=== PATIENT | male | born 1965 | race Caucasian/White ===

== ENCOUNTER 2016-12-06 14:44 | Emergency (ER) | payer OTHER ==
[~2016-12-06] VITALS: Ht 180.3 cm; Wt 104.3 kg
[~2016-12-06 14:44] MED LIST: HYDR-4100 PO
--- NOTE | 2016-12-06 15:00 | NUR ---
Patient to ER bed 2 to gown for evaluation. Side rails up. Report given to SHAMIR Borjas.
[2016-12-06 15:07] VITALS: BP 114/77; PULSE 75; RESP 18; TEMP 97.1; O2SAT 96
--- NOTE | 2016-12-06 15:10 | NUR ---
Pt brought in by in stable condition. Pt c/o right armpit pain 8 from growing abscess. Pt stated that he is unable to put his arm down completely due to severe pain. Pt present in an anxious state. -sob -chest pain. No acute distress noted at this time, will continue to monitor
--- NOTE | 2016-12-06 15:20 | NUR ---
ROXIE Garsia at bedside examining patient.
[2016-12-06] MEDS ORDERED: LORazepam 1 MG TABLET PO ONE (15:45)
[2016-12-06] MEDS ORDERED: LIDOCAINE/EPI 1% 1:100000 20 ML VIAL IJ ONE (15:45)
[2016-12-06] MEDS ORDERED: IBUPROFEN 800 MG TABLET PO ONE (15:45)
[2016-12-06] MEDS ORDERED: fentaNYL CITRATE/PF 100 MCG/2 ML AMP ONE (16:30)
[2016-12-06] MEDS ORDERED: fentaNYL CITRATE/PF 100 MCG/2 ML AMP IM ONE (16:45)
[2016-12-06 17:01] VITALS: BP 114/77; PULSE 75; RESP 18; TEMP 97.1; O2SAT 96
--- NOTE | 2016-12-06 17:01 | NUR ---
Patient given written and verbal discharge instructions and verbalizes understanding. ER BUSINESS DIVISION CHAIR Sun discussed with patient the results and treatment provided. Patient in stable condition. ID arm band removed. Rx of Motrin 800, Bactrim, tramadol, and Keflex given. Patient educated on pain management and to follow up with PMD. Pain Scale 2/10. Opportunity for questions provided and answered.
== END 2016-12-06 17:07 | disposition home or self-care (01) ==
LOC: SED 14:44
DX: L02.411 Cutaneous abscess of right axilla (principal); F17.200 Nicotine dependence, unspecified, uncomplicated; I10 Essential (primary) hypertension; Z88.5 Allergy status to narcotic agent; Z88.8 Allergy status to other drugs, medicaments and biological substances; Z71.6 Tobacco abuse counseling
CPT/HCPCS: 10060; 96372; 99283; J3010

== ENCOUNTER 2016-12-09 14:41 | Emergency (ER) | payer OTHER ==
[~2016-12-09] VITALS: Ht 180.3 cm; Wt 104.8 kg
[2016-12-09 15:03] VITALS: BP 140/90; RESP 18; TEMP 97.7; O2SAT 96
--- NOTE | 2016-12-09 15:12 | NUR ---
Pt placed to ER waiting room in stable condition.
--- NOTE | 2016-12-09 15:58 | NUR ---
Pt brought to [facility] chair.
--- NOTE | 2016-12-09 16:00 | NUR ---
MD Gallego assessing patient in [facility].
[2016-12-09] MEDS ORDERED: HYDROcodone/ACETAMIN 5-325 MG TAB (NORCO/ VICODIN) PO ONE (16:15)
[2016-12-09 16:29] VITALS: BP 143/77; PULSE 79; RESP 16; O2SAT 99
--- NOTE | 2016-12-09 16:30 | NUR ---
Patient given written and verbal discharge instructions and verbalizes understanding. ER MD discussed with patient the results and treatment provided. Given copies of tests performed in ER. Patient in stable condition. ID arm band removed. Patient educated on pain management and to follow up with PMD. Pain Scale . Opportunity for questions provided and answered.
== END 2016-12-09 16:29 | disposition home or self-care (01) ==
LOC: SED 14:41
DX: M79.621 Pain in right upper arm (principal); I10 Essential (primary) hypertension; Z88.5 Allergy status to narcotic agent; Z88.8 Allergy status to other drugs, medicaments and biological substances
CPT/HCPCS: 99283

== ENCOUNTER 2017-08-26 15:19 | Emergency (ER) | payer MEDICARE, MEDICAID ==
[~2017-08-26] VITALS: Ht 180.3 cm; Wt 111.1 kg
[2017-08-26 15:24] VITALS: BP_SYST 156
[2017-08-26] MEDS ORDERED: MORPHINE 4 MG/ML INJ. SYRINGE IVP ONE (16:30)
[2017-08-26] MEDS ORDERED: ONDANSETRON HCL 4 MG/2 ML VIAL IVP ONE (16:30)
[2017-08-26 16:47] LABS: BASOPHILS # (AUTO) 0.1 K/uL (0.0-0.2); BASOPHILS % (AUTO) 0.4 % (0.0-2.0); EOSINOPHILS # (AUTO) 0.1 K/uL (0.0-0.4); EOSINOPHILS % (AUTO) 0.5 % (0.0-4.0); HEMATOCRIT 42.6 % (36-54); HEMOGLOBIN 13.7 g/dL (14.0-18.0); LYMPHOCYTES # (AUTO) 2.6 K/uL (1.0-5.5); LYMPHOCYTES % (AUTO) 19.4 % (20.5-51.5); MEAN CORPUSCULAR HEMOGLOBIN 28 pg (27-31); MEAN CORPUSCULAR HGB CONC 32 % (32-36); MEAN CORPUSCULAR VOLUME 87 fL (79.0-98.0); MONOCYTES # (AUTO) 0.7 K/uL (0.0-1.0); MONOCYTES % (AUTO) 5.2 % (1.7-9.3); NEUTROPHILS # (AUTO) 9.8 K/uL (1.8-7.7); NEUTROPHILS % (AUTO) 74.5 % (40.0-70.0); PLATELET COUNT (AUTO) 356 K/uL (130-430); RED BLOOD CELL COUNT(AUTO) 4.88 MIL/uL (4.2-6.2); RED CELL DISTRIBUTION WIDTH 13.5 % (9.0-15.0); WHITE BLOOD COUNT (AUTO) 13.3 K/uL (4.8-10.8)
[2017-08-26 16:56] LABS: CALCIUM 9.6 mg/dL (8.4-11.0); CREATININE 0.74 mg/dL (0.55-1.30); INR 1.1 (0.80-1.20); POTASSIUM 3.9 mmol/L (3.5-5.1); PROTHROMBIN TIME 10.8 SECS (9.5-12.5)
[2017-08-26 17:01] LABS: ALBUMIN 3.9 g/dL (3.4-4.8); TOTAL BILIRUBIN 0.3 mg/dL (0.0-1.0)
[2017-08-26] MEDS ORDERED: HYDROmorphone 1 MG INJ. 1 MG/ML AMPUL IVP ONE ×2 (18:15→19:45)
[2017-08-26 19:24] LABS: BILIRUBIN,URINE NEGATIVE (NEGATIVE); BLOOD, URINE NEGATIVE (NEGATIVE); CLARITY/URINE CLEAR (CLEAR); COLOR,URINE YELLOW (YELLOW); GLUCOSE,URINE NEGATIVE (NEGATIVE); KETONES,URINE NEGATIVE (NEGATIVE); LEUKOCYTE ESTERASE ,URINE NEGATIVE (NEGATIVE); NITRITE, URINE NEGATIVE (NEGATIVE); PH,URINE 6.5 (5.0-8.0); PROTEIN URINE NEGATIVE (NEGATIVE); UROBILINOGEN,URINE 0.2 (0.2-1.0)
[2017-08-26 20:18] VITALS: BP_SYST 143
== END 2017-08-26 20:18 | disposition home or self-care (01) ==
LOC: SED 15:19
DX: G89.29 Other chronic pain (principal); M54.5 Low back pain; F41.1 Generalized anxiety disorder; I10 Essential (primary) hypertension; Z87.891 Personal history of nicotine dependence
CPT/HCPCS: 36415; 71010; 72100; 80053; 81003; 84484; 85025; 85610; 93005; 96374; 96375; 96376; 99285; J1170; J2270; J2405

== ENCOUNTER 2017-10-22 23:36 | Emergency (ER) | payer MEDICARE, MEDICAID ==
[~2017-10-22] VITALS: Ht 180.3 cm; Wt 111.1 kg
[2017-10-23 00:19] VITALS: BP_SYST 132
[2017-10-23] MEDS ORDERED: DIPHENHYDRAMINE INJ 50 MG/ML VIAL IM ONE (03:00)
[2017-10-23] MEDS ORDERED: HYDROmorphone 2 MG/ML VIAL IM ONE (03:00)
[2017-10-23 03:15] VITALS: BP_SYST 128
== END 2017-10-23 03:15 | disposition home or self-care (01) ==
LOC: SED 23:36
DX: G89.29 Other chronic pain (principal); M54.5 Low back pain; I10 Essential (primary) hypertension; Z88.8 Allergy status to other drugs, medicaments and biological substances
CPT/HCPCS: 96372; 99284; J1170; J1200

== ENCOUNTER 2017-10-31 08:46 | Emergency (ER) | payer MEDICARE, MEDICAID ==
[~2017-10-31] VITALS: Ht 180.3 cm; Wt 108.9 kg
[2017-10-31 08:46] VITALS: BP_SYST 158
--- NOTE | 2017-10-31 08:46 | NUR ---
Pt placed to ER bed 05, to gown, report given to SHAMIR Joaquin.
--- NOTE | 2017-10-31 08:58 | NUR ---
ER Dr. Murry at bedside examining patient.
--- NOTE | 2017-10-31 08:59 | NUR ---
Pt AAOX4, able to verbalize needs, ambulates with cane. Pt c/o 07/03 left hip pain post bilat hip surgery "a while ago." Pt states, "I don't want to be here, but I keep getting redirected by my pain management doctor and orthopedic doctor. I'm not states not supposed to be here." No other complaints or injuries per pt or noted. Addendum: 10/31/17 at 0945 by MARY KAY Pt also states, "I'm here because I called the doctor 3 times and the answering service states to go to ER if no phone call is returned."
--- NOTE | 2017-10-31 09:14 | NUR ---
Dr. Murry at bedside with patient.
[2017-10-31] MEDS ORDERED: HYDROmorphone 2 MG/ML VIAL IM ONE (09:30)
[2017-10-31] MEDS ORDERED: DIPHENHYDRAMINE INJ 50 MG/ML VIAL IM ONE (09:30)
--- NOTE | 2017-10-31 10:07 | NUR ---
Pt states pain relief post administration of meds per Dr. Murry's orders. No adverse reactions noted.
--- NOTE | 2017-10-31 10:15 | NUR ---
Patient given written and verbal discharge instructions and verbalizes understanding. ER MD discussed with patient the results and treatment provided. Patient in stable condition. ID arm band removed. IV catheter removed intact and dressing applied, no active bleeding. No Rx given. Patient educated on pain management and to follow up with PMD. Pain Scale 4/10, states "pain is bearable." Opportunity for questions provided and answered. Addendum: 10/31/17 at 1453 by MARY KAY Correction: No IV was given or in place during visit.
[2017-10-31 10:18] VITALS: BP_SYST 135
== END 2017-10-31 10:14 | disposition home or self-care (01) ==
LOC: SED 08:46
DX: G89.29 Other chronic pain (principal); M25.552 Pain in left hip; I10 Essential (primary) hypertension; Z96.643 Presence of artificial hip joint, bilateral; Z88.8 Allergy status to other drugs, medicaments and biological substances
CPT/HCPCS: 96372; 99284; J1170; J1200

== ENCOUNTER 2018-01-18 13:08 | Emergency (ER) | payer MEDICARE, MEDICAID ==
[~2018-01-18] VITALS: Ht 180.3 cm; Wt 108.9 kg
[2018-01-18 13:18] VITALS: BP_SYST 124
[2018-01-18] MEDS: MORPHINE SULFATE 10 MG/ML VIAL IM PRN (14:43)
[2018-01-18 15:10] VITALS: BP_SYST 122
[2018-01-18] MEDS ORDERED: MORPHINE SULFATE 15 MG TABLET.ER PO SCH (21:00)
== END 2018-01-18 15:10 | disposition home or self-care (01) ==
LOC: SED 13:08
DX: S76.012A Strain of muscle, fascia and tendon of left hip, initial encounter (principal); I10 Essential (primary) hypertension; Z96.643 Presence of artificial hip joint, bilateral; Z88.8 Allergy status to other drugs, medicaments and biological substances; W01.0XXA Fall on same level from slipping, tripping and stumbling without subsequent striking against object, initial encounter; Y93.89 Activity, other specified; Y92.89 Other specified places as the place of occurrence of the external cause; Y99.8 Other external cause status
CPT/HCPCS: 73502; 73552; 96372; 99284; J2270

== ENCOUNTER 2021-05-23 10:26 | Emergency (ER) | payer OTHER, MEDICAID ==
[~2021-05-23] VITALS: Ht 170.2 cm; Wt 118.4 kg
[~2021-05-23 10:26] MED LIST changes: +HYDR-3927 PO; -HYDR-4100 PO
--- NOTE | 2021-05-23 11:00 | NUR ---
Dr. Hargrove saw pt. in triage area
[2021-05-23 11:24] VITALS: BP_SYST 148
--- NOTE | 2021-05-23 11:57 | NUR ---
Patient to ER bed 05 to gown for evaluation. Side rails up.
[2021-05-23 12:01] LABS: BASOPHILS # (AUTO) 0.1 K/uL (0.0-0.2); BASOPHILS % (AUTO) 0.6 % (0.0-2.0); EOSINOPHILS # (AUTO) 0.2 K/uL (0.0-0.4); HEMATOCRIT 33.7 % (36-54); HEMOGLOBIN 11.1 g/dL (14.0-18.0); LYMPHOCYTES # (AUTO) 2.6 K/uL (1.0-5.5); LYMPHOCYTES % (AUTO) 24.7 % (20.5-51.5); MEAN CORPUSCULAR HEMOGLOBIN 27 pg (27-31); MEAN CORPUSCULAR HGB CONC 33 % (32-36); MEAN CORPUSCULAR VOLUME 83 fL (79.0-98.0); MONOCYTES # (AUTO) 0.7 K/uL (0.0-1.0); MONOCYTES % (AUTO) 6.7 % (1.7-9.3); PLATELET COUNT (AUTO) 372 K/uL (130-430); RED BLOOD CELL COUNT(AUTO) 4.07 MIL/uL (4.2-6.2); WHITE BLOOD COUNT (AUTO) 10.6 K/uL (4.8-10.8)
[2021-05-23 12:16] LABS: CALCIUM 9.2 mg/dL (8.4-11.0); CREATININE 0.93 mg/dL (0.55-1.30); POTASSIUM 3.5 mmol/L (3.5-5.1)
[2021-05-23 12:20] LABS: ALBUMIN 3.5 g/dL (3.4-4.8); C-REACTIVE PROTEIN QUANT 6.6 mg/dL (0-0.5); TOTAL BILIRUBIN 0.3 mg/dL (0.0-1.0)
[2021-05-23 12:21] LABS: PROTHROMBIN TIME 10.3 SECS (9.5-12.5)
--- NOTE | 2021-05-23 12:30 | NUR ---
Pt. brought himself here with pain and concerns regarding abd. hernia. states pain 04/02 to abd. also has chronic back pain which he uses a morphine pump for and takes percocet. Did not take this morning dose of percocet and is requesting some, notified Dr. Hargrove, he wants to wait for CT scan results.
[2021-05-23 12:35] LABS: BILIRUBIN,URINE NEGATIVE (NEGATIVE); BLOOD, URINE NEGATIVE (NEGATIVE); CLARITY/URINE CLEAR (CLEAR); COLOR,URINE YELLOW (YELLOW); GLUCOSE,URINE NEGATIVE (NEGATIVE); KETONES,URINE NEGATIVE (NEGATIVE); LEUKOCYTE ESTERASE ,URINE NEGATIVE (NEGATIVE); NITRITE, URINE NEGATIVE (NEGATIVE); PROTEIN URINE NEGATIVE (NEGATIVE); UROBILINOGEN,URINE 0.2 (0.2-1.0)
[2021-05-23] MEDS ORDERED: OXYCODONE/ACETAMINOPHEN *10*mg/325 mg TABLET PO ONE ×2 (13:45→14:15)
--- NOTE | 2021-05-23 14:12 | NUR ---
Pt resquesting another percocet at this time, notified
[2021-05-23 14:28] VITALS: BP_SYST 150
--- NOTE | 2021-05-23 14:30 | NUR ---
Patient given written and verbal discharge instructions and verbalizes understanding. ER Dr. Hargrove discussed with patient the results and treatment provided. Patient in stable condition. ID arm band removed. Patient educated on pain management and to follow up with PMD. Pain Scale 3. Opportunity for questions provided and answered. Medication side effect fact sheet provided.
== END 2021-05-23 14:28 | disposition home or self-care (01) ==
LOC: SED 10:26
DX: K42.9 Umbilical hernia without obstruction or gangrene (principal); I10 Essential (primary) hypertension; Z88.8 Allergy status to other drugs, medicaments and biological substances; Z79.899 Other long term (current) drug therapy
CPT/HCPCS: 36415; 76376; 80053; 81003; 82150; 83690; 85025; 85610-TC; 85730-TC; 86140; 99284

== ENCOUNTER 2021-06-06 09:11 | Day surgery (SDC) | payer OTHER, MEDICAID, SELFPAY ==
[~2021-06-06] VITALS: Ht 180.3 cm; Wt 118.4 kg
[~2021-06-06 09:11] MED LIST changes: +CEFAZOLIN SOD 1 GM in D5W 50 ML IV ONE
[2021-06-06] MEDS ORDERED: BUPIVACAINE LIPOSOME/PF 266 MG/20 ML VIAL INFIL ONE ×2 (10:02→10:51)
[2021-06-06] MEDS ORDERED: MIDAZOLAM HCL 5 MG/ML VIAL (VERSED) IV ONE (10:02)
[2021-06-06] MEDS ORDERED: DESFLURANE 15 MIN GAS INH ONE (10:02)
[2021-06-06] MEDS ORDERED: NS 50 ML BAG IV ONE (10:02)
[2021-06-06] MEDS ORDERED: SUGAMMADEX SODIUM 200 MG/2 ML VIAL IV ONE (10:02)
[2021-06-06] MEDS ORDERED: BUPIVACAINE /EPINEPHRINE/PF 0.25% 30 ML VIAL INJ ONE (10:02)
[2021-06-06] MEDS ORDERED: PROPOFOL 200MG/ 20ML VIAL (DIPRIVAN) IV ONE (10:02)
[2021-06-06] MEDS ORDERED: NS 100 ML BAG IV ONE (10:02)
[2021-06-06] MEDS ORDERED: fentaNYL CITRATE 250 MCG/5 ML AMP IV ONE (10:02)
[2021-06-06] MEDS ORDERED: ROCURONIUM BROMIDE 10 MG/ML (ZEMURON) IV ONE (10:02)
[2021-06-06] MEDS ORDERED: DEXAMETHASONE SOD PHOSPHATE 10 MG/ML VIAL IVP ONE (10:02)
[2021-06-06] MEDS ORDERED: LIDOCAINE 2%, 20 ML MDV IM ONE (10:02)
[2021-06-06] MEDS ORDERED: LR 1,000 ML IV.SOLN IV ONE (10:02)
[2021-06-06] MEDS ORDERED: POLYMYXIN 500,000/BACIT.10,000 UNITS in NS IRR 1 L IR ONE (10:17)
[2021-06-06] MEDS ORDERED: ONDANSETRON HCL 4 MG/2 ML VIAL IVP PRN ×2 (10:45→12:45)
[2021-06-06] MEDS ORDERED: hydrALAZINE HCL 20 MG/ML VIAL IVP PRN (10:45)
[2021-06-06] MEDS ORDERED: HYDROmorphone 1 MG/ML INJ. CARTRIDGE IVP PRN ×2 (10:45)
[2021-06-06] MEDS ORDERED: LABETALOL 100 MG/ 20ML VIAL IVP PRN (10:45)
[2021-06-06] MEDS ORDERED: LR 1,000 ML IV SCH (10:45)
[2021-06-06] MEDS ORDERED: MIDAZOLAM HCL 2 MG/2 ML VIAL (VERSED) IVP PRN (10:45)
[2021-06-06] MEDS ORDERED: MEPERIDINE HCL/PF 25 MG/ML DISP.SYRIN IVP PRN (10:45)
[2021-06-06] MEDS ORDERED: D5/0.45 NS 1,000 ML IV SCH (12:45)
[2021-06-06] MEDS ORDERED: HYDROcodone/ACETAMIN 5-325 MG TAB (NORCO/ VICODIN) PO PRN ×2 (12:45)
[2021-06-06] MEDS ORDERED: ACETAMINOPHEN 325 MG TABLET PO PRN (12:45)
[2021-06-06] MEDS ORDERED: HYDROmorphone 2 MG/ML VIAL ONE (13:12)
[2021-06-06 14:30] VITALS: BP_SYST 145
--- NOTE | 2021-06-06 14:30 | NUR ---
Admit from PACU Patient admitted to Medical Surgical unit and report received from Stephenie BARKSDALE at bedside. Patient awake and alert, oriented x 4. Patient reports severe pain 8/10 to abdomen S/P inguinal hernia repair. Vital signs stable. Receiving 3.5 L O2 via N/C saturating 98%. Will continue to monitor vital signs postop per protocol. Safety precautions in place. Call light in reach.
[2021-06-06 14:47] VITALS: BP_SYST 145
[2021-06-06] MEDS ORDERED: CEFAZOLIN 1 GM IVPB PREMIX 50 ML IV SCH (15:00)
[2021-06-06] MEDS: HYDROmorphone 1 MG/ML INJ. CARTRIDGE IVP PRN ×2 (15:02→18:19)
[2021-06-06] MEDS ORDERED: LISI10TA29 PO (15:42)
[2021-06-06] MEDS ORDERED: HYDR25TA4 PO (15:42)
[2021-06-06] MEDS ORDERED: FURO-150 PO (15:42)
[2021-06-06] MEDS ORDERED: CITA40TA22 PO (15:42)
[2021-06-06] MEDS ORDERED: FER300L PO (15:42)
[2021-06-06] MEDS ORDERED: LORA10TA7 PO (15:42)
[2021-06-06 16:00] VITALS: BP_SYST 130
[2021-06-06 17:52] VITALS: BP_SYST 158
--- NOTE | 2021-06-06 18:57 | NUR ---
Notes Patient just finished eating dinner, resting in bed. Ambulatory without assist. Pain is controlled at this time. All needs met. Bed in lowest position. Call light in reach. Will endorse to night nurse.
--- NOTE | 2021-06-06 19:30 | NUR ---
CHANGE OF SHIFT; S/P Repair of Incarcerated hernia. no distress. been ambulating. call light within reach.
--- NOTE | 2021-06-06 20:45 | NUR ---
NOTES: pt. ambulating in the hallway. pt. wants to call , asked monitor check clerk to call Dr. Montesinos, he wants to go home tonight. charge nurse Adeola made aware.
[2021-06-06] MEDS ORDERED: FERROUS SULFATE 300 MG/5 ML UDC PO SCH (21:00)
[2021-06-06] MEDS ORDERED: FAMOTIDINE PF 20 MG/2 ML VIAL IVP SCH (21:00)
--- NOTE | 2021-06-06 21:01 | NUR ---
NOTES: Dr. briseno called back and told him pt. wants to go home tonight, ok for discharge.
--- NOTE | 2021-06-06 21:30 | NUR ---
NOTES: pt. informed that he is going home tonight.pt. very anxious to go.
--- NOTE | 2021-06-06 22:25 | NUR ---
NOTES: discharge instructions given to pt. and verbalized understanding. IV discontinued. abdominal dressing intact. follow up appt. in 10 days. may shower and remove dressing in 48 hrs.
[2021-06-07] MEDS ORDERED: FUROSEMIDE 20 MG TABLET PO SCH (09:00)
[2021-06-07] MEDS ORDERED: CITALOPRAM HYDROBROMIDE 20 MG TABLET PO SCH (09:00)
[2021-06-07] MEDS ORDERED: HYDROCHLOROTHIAZIDE 25 MG TABLET (HCTZ) PO SCH (09:00)
[2021-06-07] MEDS ORDERED: LISINOPRIL 10 MG TABLET (PRINIVIL) PO SCH (09:00)
[2021-06-07] MEDS ORDERED: ENOXAPARIN SODIUM 30 MG/0.3 ML SYRINGE SUBCUT SCH (09:00)
[2021-06-07] MEDS ORDERED: LORATADINE 10 MG TABLET PO SCH (09:00)
== END 2021-06-06 22:40 | disposition home or self-care (01) ==
LOC: SDS 09:11 → SMU 09:12 → SDS 22:40
PROVIDERS: ATTEND Colon & Rectal Surgery
DX: K43.0 Incisional hernia with obstruction, without gangrene (principal); K40.20 Bilateral inguinal hernia, without obstruction or gangrene, not specified as recurrent; I10 Essential (primary) hypertension; E66.01 Morbid (severe) obesity due to excess calories; F41.9 Anxiety disorder, unspecified; G89.29 Other chronic pain; Z87.891 Personal history of nicotine dependence; Z20.822 Contact with and (suspected) exposure to COVID-19; Z79.899 Other long term (current) drug therapy
CPT/HCPCS: 49507; 49561; 49568; 88302; C1781 ×2; C9290; J0690 ×2; J1170 ×2; J3490; J7060; U0003; C9399; J1100; J2001; J2250; J2704; J3010; J7120

== ENCOUNTER 2021-12-21 03:48 | Emergency (ER) | payer OTHER, MEDICAID ==
[~2021-12-21] VITALS: Ht 180.3 cm; Wt 117.9 kg
[~2021-12-21 03:48] MED LIST changes: -CEFAZOLIN SOD 1 GM in D5W 50 ML IV ONE; +CITA40TA22 PO; +FER300L PO; +FURO-150 PO; +HYDR25TA4 PO; +LISI10TA29 PO; +LORA10TA7 PO
[2021-12-21 03:56] VITALS: BP_SYST 155
--- NOTE | 2021-12-21 03:56 | NUR ---
Patient to ER bed 5 to gown for evaluation. Side rails up. Report given to Terry BARKSDALE.
--- NOTE | 2021-12-21 05:43 | NUR ---
Pt C/O left sided chest wall pain. Pt states he fell on his side. Chest X-ray ruled out any apparent fractures Per MD, pt okay for DC DC instructions given to pt Pt verbalizzed understandings AOX4 VSS Able to make needs known Pt exited ED in stable gait
[2021-12-21 05:46] VITALS: BP_SYST 130
--- NOTE | 2021-12-21 06:45 | NUR ---
DANNA Riley at bedside examining patient.
--- NOTE | 2021-12-21 06:53 | NUR ---
Radiology at bedside for imaging.
--- NOTE | 2021-12-21 07:00 | NUR ---
Patient given written and verbal discharge instructions and verbalizes understanding. discussed with patient the results and treatment provided. Patient in stable condition. ID arm band removed. Opportunity for questions provided and answered. Per report.
== END 2021-12-21 07:00 | disposition home or self-care (01) ==
LOC: SED 03:48
DX: R07.89 Other chest pain (principal); I10 Essential (primary) hypertension; Z88.5 Allergy status to narcotic agent
CPT/HCPCS: 71100; 99283

== ENCOUNTER 2022-06-13 23:59 | Emergency (ER) | payer OTHER, MEDICAID ==
[~2022-06-13] VITALS: Ht 180.3 cm; Wt 117.5 kg
[2022-06-14 00:37] VITALS: BP_SYST 144
--- NOTE | 2022-06-14 01:23 | NUR ---
Patient to ER [facility] 3 for evaluation. Report given to NIURKA BARKSDALE.
--- NOTE | 2022-06-14 01:25 | NUR ---
PT C/O ALLERGIC REACTION TO DOGS, PT WAS AROUND A DOG TODAY, PT STATES ITCHINESS AND HIVES ALL OVER BODY, PT STATES HE TOOK 2 BENADRYL RIGHT BEFORE ARRIVAL, PT STATES HE IS FEELING ALOT BETTER. NO HIVES VISIBLE. DENIES SOB AT PRESENT TIME.
== END 2022-06-14 02:00 | disposition left against medical advice (07) ==
LOC: SED 23:59
DX: J30.81 Allergic rhinitis due to animal (cat) (dog) hair and dander (principal); Z53.21 Procedure and treatment not carried out due to patient leaving prior to being seen by health care provider
CPT/HCPCS: 99281

== ENCOUNTER 2023-12-20 11:13 | Emergency (ER) | payer OTHER, MEDICAID ==
[~2023-12-20] VITALS: Ht 180.3 cm; Wt 119.7 kg
[2023-12-20 11:33] VITALS: BP_SYST 159; PULSE 61; RESP 18; TEMP 98.3; O2SAT 96
[2023-12-20] MEDS ORDERED: METH-776 PO (12:15)
[2023-12-20] MEDS ORDERED: LEVO750T64 PO (12:15)
[2023-12-20 12:21] VITALS: BP_SYST 159; PULSE 61; RESP 18; TEMP 98.3; O2SAT 96
== END 2023-12-20 12:21 | disposition home or self-care (01) ==
LOC: SED 11:13
DX: J44.1 Chronic obstructive pulmonary disease with (acute) exacerbation (principal); F17.200 Nicotine dependence, unspecified, uncomplicated; I10 Essential (primary) hypertension; Z88.5 Allergy status to narcotic agent; Z79.899 Other long term (current) drug therapy
CPT/HCPCS: 99283

== ENCOUNTER 2024-07-09 07:14 | Emergency (ER) | payer OTHER, MEDICAID ==
[~2024-07-09] VITALS: Ht 180.3 cm; Wt 113.9 kg
[~2024-07-09 07:14] MED LIST changes: +LEVO750T64 PO; +METH-776 PO
[2024-07-09 07:17] VITALS: BP_SYST 146; PULSE 63; TEMP 96.8; O2SAT 96
[2024-07-09] MEDS ORDERED: LIDOINT TP (10:38)
[2024-07-09 10:43] VITALS: BP_SYST 136; PULSE 68; RESP 18; TEMP 97.6; O2SAT 96
== END 2024-07-09 10:45 | disposition home or self-care (01) ==
LOC: SED 07:14
DX: S22.32XA Fracture of one rib, left side, initial encounter for closed fracture (principal); J45.909 Unspecified asthma, uncomplicated; I10 Essential (primary) hypertension; G89.29 Other chronic pain; J44.9 Chronic obstructive pulmonary disease, unspecified; Z88.8 Allergy status to other drugs, medicaments and biological substances; Z79.899 Other long term (current) drug therapy; Z79.2 Long term (current) use of antibiotics; X58.XXXA Exposure to other specified factors, initial encounter; Y93.89 Activity, other specified; Y92.89 Other specified places as the place of occurrence of the external cause; Y99.8 Other external cause status
CPT/HCPCS: 71100; 99283